=== PATIENT | female | born 1965 | race Caucasian/White ===

== ENCOUNTER 2019-10-15 08:24 | Outpatient (CLI) | payer BC, SELFPAY ==
[2019-10-15 09:19] LABS: Hematocrit 40.7 % (37.0-47.0); Hemoglobin 13.3 g/dL (11.5-15.3); Mean Corpuscular HGB Conc 32.7 g/dL (30.0-36.0); Mean Corpuscular Hemoglobin 31.4 pg (28.0-34.0); Mean Platelet Volume 10.7 fL (7.4-10.4); Platelet Count 199 10^3/cmm (130-400); Red Blood Count 4.24 10^6/uL (4.1-5.3); Red Cell Distribution Width 11.8 % (12.1-15.1); White Blood Count 4.7 10^3/uL (4.0-10.0)
[2019-10-15 09:38] LABS: Estmated Average Glucose 120; Hemoglobin A1C 5.8 % (4.0-6.0)
[2019-10-15 10:00] LABS: Alanine Aminotransferase 15 U/L (0-33); Albumin Level 4.4 g/dL (3.5-5.2); Alkaline Phosphatase 53 IU/L (35-105); Anion Gap 13.1 (5-19); Aspartate Amino Transferase 19 U/L (0-32); Blood Urea Nitrogen 12 mg/dL (6-20); Calcium 9.8 mg/dL (8.5-10.5); Carbon Dioxide 27 mmol/L (22-29); Chloride 103 mmol/L (98-107); Cholesterol 160 mg/dL (0-200); Globulin 2.7 g/dL (1.3-4.6); Glomerular Filtration Rate 65.8 mL/min (90-130); Glucose 119 mg/dL (65-115); HDL Cholesterol 100 mg/dL (60-100); LDL Cholesterol Calculated 40 mg/dL (50-129); Lactate Dehydrogenase 132 U/L (135-214); Magnesium 2.3 mg/dL (1.7-2.3); Osmolality Calculated 285 mOsm/kg (285-295); Potassium 4.1 mmol/L (3.5-5.1); Sodium 139 mmol/L (136-145); Thyroid Stimulating Hormone 3.33 uIU/mL (0.27-4.20); Total Bilirubin 0.2 mg/dL (0.15-1.2); Total Protein 7.1 g/dL (6.6-8.7); Triglycerides 101 mg/dL (0-150)
[2019-10-15 12:00] LABS: 25 Hydroxy Vitamin D > 100 ng/mL (30-100)
[2019-10-16 06:01] LABS: T4 Total 10.7 mcg/dL (5.1-11.9)
[2019-10-16 06:39] LABS: Absolute Eosinophils 0.1 10^3/cmm (0.0-0.7); Absolute Segmented Neutrophil 2.3 10/cmm (1.6-7.1); Band Neutrophils Absolute 0.1 10^3/cmm (0.0-1.2); Eosinophils 3 %; Lymphocytes 38 %; Monocytes Absolute 0.4 10^3/cmm (0.1-0.6); Platelet Estimate Normal (Normal); Segmented Neutrophils 49 %; Total Cells Counted 100 (0-100)
[2019-10-16 12:01] LABS: Lyme AB Screen <0.90 index
[2019-10-18 16:36] LABS: E. Chaffeensis AB IGG <1:64; E. Chaffeensis AB IGM <1:20
[2019-10-18 17:31] LABS: RMSF IGG NOT DETECTED; RMSF IGM NOT DETECTED
== END 2019-10-15 08:25 | disposition home or self-care (01) ==
PROVIDERS: Family Provider Family Medicine; PCP Family Medicine; Visit Provider Nurse Practitioner Family
DX: Z00.00 Encounter for general adult medical examination without abnormal findings (principal); R53.83 Other fatigue; E03.9 Hypothyroidism, unspecified; S80.262A Insect bite (nonvenomous), left knee, initial encounter; I25.10 Atherosclerotic heart disease of native coronary artery without angina pectoris; R73.9 Hyperglycemia, unspecified; Z79.899 Other long term (current) drug therapy; X58.XXXA Exposure to other specified factors, initial encounter
CPT/HCPCS: 80053; 80061; 82248; 82306; 83036; 83615; 83735; 84436; 84443; 85007; 85027; 86618; 86666; 86757

== ENCOUNTER 2019-10-22 08:29 | Outpatient (RCR) | payer BC, SELFPAY | END 2019-11-11 23:59 | disposition home or self-care (01) | LOC: SPT 08:29 | PROVIDERS: PCP Family Medicine; Referring Provider Nurse Practitioner Family; Visit Provider Nurse Practitioner Family | DX: M16.0 Bilateral primary osteoarthritis of hip (principal); R53.1 Weakness | CPT/HCPCS: 97110; 97162 ==

== ENCOUNTER 2020-11-17 11:01 | Outpatient (CLI) | payer BC, SELFPAY ==
[2020-11-17 12:06] LABS: Estmated Average Glucose 88; Hemoglobin A1C 4.7 % (4.0-6.0)
[2020-11-17 12:15] LABS: Basophils # 0.1 10^3/uL (0.0-0.1); Basophils % 0.8 %; Eosinophils # 0.1 10^3/uL (0.0-0.8); Eosinophils % 2.1 %; Hematocrit 40.7 % (37.0-47.0); Hemoglobin 14.3 g/dL (11.5-15.3); Lymphocytes # 2.1 10^3/uL (0.8-4.8); Lymphocytes % 33.3 %; Mean Corpuscular HGB Conc 35.1 g/dL (30.0-36.0); Mean Corpuscular Hemoglobin 32.1 pg (28.0-34.0); Mean Corpuscular Volume 91.3 fL (81-99); Monocytes # 0.4 10^3/uL (0.2-0.9); Monocytes % 7.1 %; Neutrophils # 3.52 10^3/uL (1.8-7.7); Neutrophils % 56.5 %; Nucleated Red Blood Cells % 0 %; Platelet Count 185 10^3/cmm (130-400); Red Blood Count 4.46 10^6/uL (4.1-5.3); Red Cell Distribution Width 11.9 % (12.1-15.1); White Blood Count 6.2 10^3/uL (4.0-10.0)
[2020-11-17 12:16] LABS: 25 Hydroxy Vitamin D 44 ng/mL (30-100); Alanine Aminotransferase 19 U/L (0-33); Albumin Level 4.5 g/dL (3.5-5.2); Alkaline Phosphatase 69 IU/L (35-105); Anion Gap 16.9 (5-19); Aspartate Amino Transferase 23 U/L (0-32); Blood Urea Nitrogen 11 mg/dL (6-20); Calcium 8.7 mg/dL (8.5-10.5); Carbon Dioxide 26 mmol/L (22-29); Chloride 101 mmol/L (98-107); Chol HDL Ratio 1.71 mg/dL (0.0-4.40); Cholesterol 157 mg/dL (0-200); Globulin 2.6 g/dL (1.3-4.6); Glomerular Filtration Rate 87.2 mL/min (90-130); Glucose 93 mg/dL (65-115); HDL Cholesterol 92 mg/dL (60-100); LDL Cholesterol Calculated 49 mg/dL (50-129); LDL HDL Ratio 0.53 RATIO (0.00-3.22); Lactate Dehydrogenase 134 U/L (135-214); Osmolality Calculated 289 mOsm/kg (285-295); Potassium 3.9 mmol/L (3.5-5.1); Sodium 140 mmol/L (136-145); Thyroid Stimulating Hormone 2.48 uIU/mL (0.27-4.20); Total Bilirubin 0.4 mg/dL (0.15-1.2); Total Protein 7.1 g/dL (6.6-8.7); Triglycerides 81 mg/dL (0-150)
[2020-11-17 12:40] LABS: Free T4 Free Thyroxine 1.18 ng/dL (0.82-1.77)
== END 2020-11-17 11:02 | disposition home or self-care (01) ==
PROVIDERS: PCP Nurse Practitioner Family; Visit Provider Nurse Practitioner Family
DX: Z00.00 Encounter for general adult medical examination without abnormal findings (principal); E03.9 Hypothyroidism, unspecified; E11.65 Type 2 diabetes mellitus with hyperglycemia
CPT/HCPCS: 36415; 80053; 80061; 82306; 83036; 83615; 83735; 84439; 84443; 85025

== ENCOUNTER 2021-10-29 13:52 | Outpatient (CLI) | payer BC, SELFPAY ==
[2021-10-29 14:29] LABS: Basophils % 0.7 %; Eosinophils # 0.1 10^3/uL (0.0-0.8); Eosinophils % 1.7 %; Hematocrit 45.1 % (37.0-47.0); Hemoglobin 15.1 g/dL (11.5-15.3); Lymphocytes % 35.1 %; Mean Corpuscular HGB Conc 33.5 g/dL (30.0-36.0); Mean Corpuscular Hemoglobin 31.8 pg (28.0-34.0); Mean Corpuscular Volume 94.9 fl (81-99); Mean Platelet Volume 10.6 fL (7.4-10.4); Monocytes # 0.5 10^3/uL (0.2-0.9); Monocytes % 7.8 %; Neutrophils # 3.15 10^3/uL (1.8-7.7); Neutrophils % 54.4 %; Nucleated Red Blood Cells % 0 %; Platelet Count 216 10^3/cmm (130-400); Red Blood Count 4.75 10^6/uL (4.1-5.3); Red Cell Distribution Width 11.8 % (12.1-15.1); White Blood Count 5.8 10^3/uL (4.0-10.0)
[2021-10-29 15:06] LABS: Chol HDL Ratio 1.47 mg/dL (0.0-4.40); Cholesterol 169 mg/dL (0-200); Ferritin 159 ng/mL (15-150); HDL Cholesterol 115 mg/dL (60-100); Iron 99 ug/dL (37-145); LDL Cholesterol Calculated 41 mg/dL (50-129); Percent Saturation 25.7 % (20-50); Thyroid Stimulating Hormone 6.14 uIU/mL (0.27-4.20); Total Iron Binding Capacity 384 mcg/dl; Triglycerides 64 mg/dL (0-150); Unsaturated Iron Binding 285 ug/dL (112-347); VLDL Cholestrol Calculation 13 mg/dL (0-30)
[2021-10-29 15:40] LABS: T3 Free 2.9 PG/ML (2.0-4.4)
[2021-10-30 08:07] LABS: T4 Total 10.2 mcg/dL (5.1-11.9)
== END 2021-10-29 13:53 | disposition home or self-care (01) ==
PROVIDERS: PCP Nurse Practitioner Family; Visit Provider Family Medicine
DX: Z00.00 Encounter for general adult medical examination without abnormal findings (principal); R53.83 Other fatigue; Z79.899 Other long term (current) drug therapy; E03.9 Hypothyroidism, unspecified
CPT/HCPCS: 36415; 80061; 82330; 82728; 83540; 83550; 84436; 84443; 84481; 85025

== ENCOUNTER 2021-11-13 06:21 | Outpatient (CLI) | payer BC, SELFPAY | END 2021-11-13 06:22 | disposition home or self-care (01) | LOC: LAB 06:23 | PROVIDERS: PCP Nurse Practitioner Family; Visit Provider Family Medicine | DX: R53.83 Other fatigue (principal); E03.9 Hypothyroidism, unspecified; Z79.899 Other long term (current) drug therapy | CPT/HCPCS: 80193 ==

== ENCOUNTER 2022-03-15 07:07 | Outpatient (CLI) | payer BC, SELFPAY ==
[2022-03-15 08:02] LABS: Alanine Aminotransferase 12 U/L (0-33); Cholesterol 156 mg/dL (0-200); HDL Cholesterol 92 mg/dL (60-100); LDL Cholesterol Calculated 48 mg/dL (50-129); LDL HDL Ratio 0.52 RATIO (0.00-3.22); Triglycerides 78 mg/dL (0-150)
== END 2022-03-15 07:08 | disposition home or self-care (01) ==
LOC: LAB 07:09
PROVIDERS: PCP Nurse Practitioner Family; Visit Provider Nurse Practitioner Family
DX: E78.5 Hyperlipidemia, unspecified (principal)
CPT/HCPCS: 36415; 80061; 84460

== ENCOUNTER 2022-05-12 09:11 | Outpatient (CLI) | payer BC, SELFPAY ==
[2022-05-13 16:00] LABS: Anti-Nuclear Antibody Screen NEGATIVE (NEGATIVE)
[2022-05-17 22:20] LABS: Acetylcholine Receptor Block <15 (<15)
[2022-05-19 02:04] LABS: Acetylcholine Receptor Binding <0.30 nmol/L
[2022-05-20 19:00] LABS: Acetylcholine Recept Modulatin 10
== END 2022-05-12 09:12 | disposition home or self-care (01) ==
LOC: LAB 09:14
PROVIDERS: PCP Nurse Practitioner Family; Visit Provider Nurse Practitioner Family
DX: M62.81 Muscle weakness (generalized) (principal)
CPT/HCPCS: 36415; 83516; 83519; 86038

== ENCOUNTER 2022-09-10 10:07 | Outpatient (CLI) | payer BC, SELFPAY ==
--- NOTE | 2022-09-10 10:13 | MM_ITS ---
WS: [id number] SCREENING DIGITAL BREAST TOMOSYNTHESIS MAMMOGRAM WITH CAD HISTORY: SCREENING COMPARISON: 11/01/2019 Bilateral CC and MLO with tomosynthesis and synthetic mammography submitted. Computer aided detection analyzed. Breast composition: The breasts are heterogeneously dense, which may obscure small masses. Partially obscured mass in the anterior RIGHT breast measures 19 x 22 mm. This mass is just medial and inferior to the nipple line near 8:00. There is an additional 7 mm mass in the superior RIGHT breast seen bes t on the MLO projection. Asymmetric density posterior to the LEFT nipple near 6:00 needs further eval uation. MM/[id number] IMPRESSION: BI-RADS: 0-Incomplete: Need additional imaging evaluation FOLLOW UP: Need Additional Imaging RIGHT breast: Spot compression views (CC and MLO). True ML. Ultrasound to follo w if abnormality persists. Spot compression views over the anterior RIGHT breas t and the RIGHT axillary tail with an exaggerated RIGHT CC lateral view. LEFT breast: Spot compression views (CC and MLO). True ML. Ultrasound to follow if abnormality persists.
== END 2022-09-10 10:08 | disposition home or self-care (01) ==
PROVIDERS: PCP Nurse Practitioner Family; Visit Provider Nurse Practitioner Family
DX: Z12.31 Encounter for screening mammogram for malignant neoplasm of breast (principal)
CPT/HCPCS: 77063; 77067

== ENCOUNTER 2022-09-28 13:50 | Outpatient (CLI) | payer BC, SELFPAY ==
[2022-09-28 14:15] LABS: Basophils # 0.1 10^3/uL (0.0-0.1); Basophils % 0.9 %; Eosinophils # 0.4 10^3/uL (0.0-0.8); Eosinophils % 7.5 %; Hematocrit 40.3 % (37.0-47.0); Hemoglobin 13.3 g/dL (11.5-15.3); Mean Corpuscular Hemoglobin 31.4 pg (28.0-34.0); Mean Platelet Volume 10.6 fL (7.4-10.4); Monocytes # 0.4 10^3/uL (0.2-0.9); Monocytes % 6.6 %; Neutrophils # 2.86 10^3/uL (1.8-7.7); Neutrophils % 49.8 %; Nucleated Red Blood Cells % 0 %; Platelet Count 178 10^3/cmm (130-400); Red Blood Count 4.24 10^6/uL (4.1-5.3); Red Cell Distribution Width 12.1 % (12.1-15.1); White Blood Count 5.7 10^3/uL (4.0-10.0)
[2022-09-28 14:49] LABS: Alanine Aminotransferase 11 U/L (0-33); Albumin Level 4.4 g/dL (3.5-5.2); Alkaline Phosphatase 53 U/L (35-105); Anion Gap 13.4 (5-19); Aspartate Amino Transferase 17 U/L (0-32); Blood Urea Nitrogen 10 mg/dL (6-20); Calcium 8.9 mg/dL (8.5-10.5); Carbon Dioxide 26 mmol/L (22-29); Chloride 102 mmol/L (98-107); Chol HDL Ratio 1.69 mg/dL (0.0-4.40); Cholesterol 145 mg/dL (0-200); Free T4 Free Thyroxine 1.36 ng/dL (0.82-1.77); Globulin 2.4 g/dL (1.3-4.6); Glomerular Filtration Rate 74.5 mL/min (90-130); Glucose 111 mg/dL (65-115); HDL Cholesterol 86 mg/dL (60-100); LDL Cholesterol Calculated 43 mg/dL (50-129); Lactate Dehydrogenase 171 U/L (135-214); Magnesium 2.1 mg/dL (1.7-2.3); Osmolality Calculated 284 mOsm/kg (285-295); Potassium 4.4 mmol/L (3.5-5.1); Sodium 137 mmol/L (136-145); T3 Free 2.4 PG/ML (2.0-4.4); Thyroid Stimulating Hormone 3.54 uIU/mL (0.27-4.20); Total Bilirubin 0.3 mg/dL (0.15-1.2); Total Protein 6.8 g/dL (6.6-8.7); Triglycerides 79 mg/dL (0-150)
[2022-09-28 15:35] LABS: 25 Hydroxy Vitamin D 36 ng/mL (30-100)
== END 2022-09-28 13:51 | disposition home or self-care (01) ==
LOC: RAD 13:50
PROVIDERS: PCP Nurse Practitioner Family; Visit Provider Nurse Practitioner Family
DX: E03.9 Hypothyroidism, unspecified (principal); I10 Essential (primary) hypertension; E78.5 Hyperlipidemia, unspecified; E55.9 Vitamin D deficiency, unspecified
CPT/HCPCS: 80053; 80061; 82306; 83615; 83735; 84439; 84443; 84481; 85025

== ENCOUNTER 2022-10-15 14:11 | Outpatient (CLI) | payer BC, SELFPAY ==
--- NOTE | 2022-10-15 14:26 | MM_ITS ---
WS: [id number] BILATERAL 3D TOMOSYNTHESIS DIGITAL DIAGNOSTIC MAMMOGRAPHY WITH CAD CLINICAL INFORMATION: ABNORMAL MAMMO HISTORY: Additional views COMPARISON: September 10, 2022 TECHNIQUE: Bilateral CC, MLO, and ML views. FINDINGS: The breasts are composed of heterogeneous fibroglandular density, which can limit the detection of sm all underlying mass lesions. Previously described partially obscured asymmetric density inferior RIGH T breast is unchanged. 7 mm nodular density superior RIGHT breast is unchanged. Asymmetric density po sterior to the LEFT nipple at 6:00 also unchanged. Ultrasound described below. ULTRASOUND BREAST BILATERAL TECHNIQUE: Ultrasound bilateral breast focused area of concern. CLINICAL INFORMATION: ABNORMAL MAMMO FINDINGS: RIGHT BREAST: Simple cyst RIGHT breast 9:00 position 1 cm from nipple measuring 1.3 x 1.1 x 1.7 cm. A dditional small cyst 10:00 o'clock position 7 cm from nipple measuring 3.6 x 3.3 mm. Normal RIGHT axi lla. LEFT BREAST: Simple cyst LEFT breast 3:00 position 2 cm from the nipple measuring 1.0 x 0.6 cm. Dense parenchymal tissue in the 6:00 position. No other suspicious abnormalities. MM/[id number] IMPRESSION: BI-RADS: 2-Benign FOLLOW UP: 1 Year Follow-up Recommend return to annual screening mammography.
== END 2022-10-15 14:12 | disposition home or self-care (01) ==
PROVIDERS: PCP Nurse Practitioner Family; Visit Provider Nurse Practitioner Family
DX: R92.8 Other abnormal and inconclusive findings on diagnostic imaging of breast (principal)
CPT/HCPCS: 76642; 77062; G0279

== ENCOUNTER 2023-05-30 13:20 | Outpatient (CLI) | payer BC, SELFPAY ==
[2023-05-30 14:01] LABS: Free T4 Free Thyroxine 0.87 ng/dL (0.82-1.77); T3 Free 2.4 PG/ML (2.0-4.4); Thyroid Stimulating Hormone 6.28 uIU/mL (0.27-4.20)
== END 2023-05-30 13:21 | disposition home or self-care (01) ==
LOC: LAB 13:21
PROVIDERS: PCP Nurse Practitioner Family; Visit Provider Nurse Practitioner Family
DX: E03.9 Hypothyroidism, unspecified (principal)
CPT/HCPCS: 36415; 84439; 84443; 84481

== ENCOUNTER 2024-10-29 10:12 | Outpatient (CLI) | payer BC, SELFPAY ==
--- NOTE | 2024-10-29 10:19 | MM_ITS ---
WS: [id number] DIAGNOSTIC BILATERAL DIGITAL BREAST TOMOSYNTHESIS MAMMOGRAPHY WITH CAD Bilateral breast ultrasound, limited HISTORY: BREAST CYST/FIBROCYSTIC BREAST DZ COMPARISON: 10/15/2022, 09/10/2022, 11/01/2019 TECHNIQUE: Bilateral craniocaudad, mediolateral oblique, and mediolateral views are submitted with tomosynthesis and SM. Spot compression bilateral CC and MLO. Computer aided detection utilized. Breast composition: The breasts are heterogeneously dense, which may obscure small masses. Palpable mass anterior RIGHT breast at 9:00 measures 10 x 10 x 10 mm. There is an additional smaller 7 x 5 x 6 mm mass towards 10:00 posteriorly. Palpable marker LEFT breast near 3:00 demonstrates no underlying abnormality. There is a partially obscured mass measuring 6 x 4 x 4 mm retroareolar, middle depth. Bilateral breast ultrasound, limited. RIGHT: Well-circumscribed cyst 9:00 3 cm from the nipple measures 1.1 x 1.1 x 0.9 cm and is unchanged. There is good through transmission. At 10:00, 6 cm from the nipple is an ovoid mass of mixed echogenicity measuring 0.8 x 1.2 x 0.5 cm. LEFT breast: Complex mass at 3:00, 4 cm from the nipple measures 0.7 x 0.6 x 0.5 cm. Mildly dilated ducts posterior to the nipple. No solid mass or abnormal enhancement. MM/MM diag BI tomosynthesis [id number] IMPRESSION: BI-RADS: 3 - Probably Benign FOLLOW UP: 6 Month Follow-up Complex cystic mass in the RIGHT breast at 10:00, 6 cm from nipple has just sli ghtly increased in size since the prior study. Recommend ultrasound follow-up i n 6 months. By mammography this heterogeneous area is similar to prior studies therefore biopsy not recommended at this time.
== END 2024-10-29 10:13 | disposition home or self-care (01) ==
PROVIDERS: PCP Nurse Practitioner Family; Visit Provider Nurse Practitioner Family
DX: N60.09 Solitary cyst of unspecified breast (principal); N60.19 Diffuse cystic mastopathy of unspecified breast; R92.333 Mammographic heterogeneous density, bilateral breasts; N63.15 Unspecified lump in the right breast, overlapping quadrants; N63.11 Unspecified lump in the right breast, upper outer quadrant; N63.25 Unspecified lump in the left breast, overlapping quadrants
CPT/HCPCS: 76642; 77062; G0279

== ENCOUNTER 2024-11-21 10:40 | Outpatient (CLI) | payer BC, SELFPAY ==
[2024-11-21 11:44] LABS: Hematocrit 37.6 % (36-47); Mean Corpuscular Hemoglobin 31.8 pg (27-33); Mean Corpuscular Volume 93.3 fl (85-98); Mean Platelet Volume 10.3 fL (7.4-10.4); Platelet Count 201 10^3/cmm (157-399); Red Blood Count 4.03 10^6/uL (3.85-5.65); Red Cell Distribution Width 12.2 % (12.1-15.1); White Blood Count 5.62 10^3/uL (3.29-11.43)
[2024-11-21 11:56] LABS: Estmated Average Glucose 105; Hemoglobin A1C 5.3 % (4.0-6.0)
[2024-11-21 12:00] LABS: Total Cells Counted 100 (0-100)
[2024-11-21 12:05] LABS: Absolute Eosinophils 0.3 10^3/cmm (0.0-0.7); Absolute Neutrophil 2.8 10^3/cmm (1.4-6.5); Absolute Segmented Neutrophil 2.8 10/cmm (1.6-7.1); Eosinophils 5 %; Lymphocytes 37 %; Lymphocytes Absolute 2.1 10^3/cmm (1.2-3.4); Monocytes Absolute 0.4 10^3/cmm (0.1-0.6); Platelet Estimate Normal (Normal); Segmented Neutrophils 49 %
[2024-11-21 12:12] LABS: Alanine Aminotransferase 16 U/L (0-33); Albumin Level 4.2 g/dL (3.5-5.2); Alkaline Phosphatase 61 U/L (35-105); Anion Gap 16.1 (5-19); Aspartate Amino Transferase 19 U/L (0-32); Blood Urea Nitrogen 11 mg/dL (6-20); Calcium 9.1 mg/dL (8.5-10.5); Carbon Dioxide 24 mmol/L (22-29); Chloride 104 mmol/L (98-107); Chol HDL Ratio 1.97 mg/dL (0.0-4.40); Cholesterol 179 mg/dL (0-200); Globulin 2.3 g/dL (1.3-4.6); Glomerular Filtration Rate 85.9 mL/min (90-130); Glucose 90 mg/dL (65-115); HDL Cholesterol 91 mg/dL (60-100); LDL Cholesterol Calculated 70 mg/dL (50-129); LDL HDL Ratio 0.77 RATIO (0.00-3.22); Lactate Dehydrogenase 125 U/L (135-214); Osmolality Calculated 289 mOsm/kg (285-295); Potassium 4.1 mmol/L (3.5-5.1); Sodium 140 mmol/L (136-145); Total Bilirubin 0.2 mg/dL (0.15-1.2); Total Protein 6.5 g/dL (6.6-8.7); Triglycerides 91 mg/dL (0-150)
[2024-11-21 12:24] LABS: 25 Hydroxy Vitamin D 35 ng/mL (30-100)
[2024-11-21 12:41] LABS: Free T4 Free Thyroxine 0.79 ng/dL (0.82-1.77)
[2024-11-21 16:44] LABS: Thyroid Stimulating Hormone 2.28 uIU/mL (0.27-4.20)
== END 2024-11-21 10:41 | disposition home or self-care (01) ==
PROVIDERS: PCP Nurse Practitioner Family; Visit Provider Nurse Practitioner Family
DX: Z00.00 Encounter for general adult medical examination without abnormal findings (principal); E03.9 Hypothyroidism, unspecified
CPT/HCPCS: 36415; 80053; 80061; 82306; 83036; 83615; 83735; 84439; 84443; 84481; 85007; 85027

== ENCOUNTER 2024-11-28 13:58 | Outpatient (CLI) | payer BC, SELFPAY ==
--- NOTE | 2024-11-28 14:17 | USR_ITS ---
PROCEDURE INFORMATION: Exam: US Pelvis, Complete, Non-Obstetric Exam date and time: 11/28/2024 2:40 PM Age: 59 years old Clinical indication: Menstruation abnormalities; Excessive menstruation; Additional info: Dub/abnormal excessive bleeding TECHNIQUE: Imaging protocol: Transabdominal pelvic nonobstetric ultrasound. Complete exam. Real time ultrasound with image documentation. COMPARISON: No relevant prior studies available. FINDINGS: Uterus: Uterus measures 7.4 x 3 x 3.7 cm with endometrial thickness of 9 mm. Hypoechoic focus measuring 1.6 cm at the posterior uterus possibly a fibroid. Right ovary/adnexa: Right ovary is not visualized. No adnexal mass. Left ovary/adnexa: Left ovary is not visualized. No adnexal mass. Intraperitoneal space: No intraperitoneal fluid. Urinary bladder: Unremarkable. US/US pelv w/transvag [id number] IMPRESSION: 1. Thickened endometrium measuring 9 mm. Assuming patient is postmenopausal, endometrial sampling could be considered. 2. Neither ovary is visualized. 3. Probable 1.6 cm posterior uterine fibroid.
== END 2024-11-28 13:59 | disposition home or self-care (01) ==
PROVIDERS: PCP Nurse Practitioner Family; Visit Provider Nurse Practitioner Family
DX: N93.9 Abnormal uterine and vaginal bleeding, unspecified (principal); R93.89 Abnormal findings on diagnostic imaging of other specified body structures
CPT/HCPCS: 76830; 76856